=== PATIENT | female | born 1965 | race Caucasian/White ===

== ENCOUNTER 2016-08-24 18:50 | Emergency (ER) | payer BC ==
[2016-08-24] MEDS ORDERED: TETRACAINE HCL 0.5% OPH SOLN 2 ML OU ONE (22:10)
--- NOTE | 2016-08-24 22:49 | ER Document Report ---
ED General - General Chief Complaint: Eye Problem Stated Complaint: EYE PAIN Notes: Patient is a pleasant 42-year-old female presents with complaint of bilateral eye pain and irritation. Patient says she initially had some pain in her right eye after she was using a chainsaw to cut down a tree limb. Patient says she saw who placed her on Cipro eyedrops. She says she's been applying Cipro eyedrops to both eyes. Since starting the eyedrops she developed worsening irritation or redness now to both eyes. No fevers. No other complaints this time. No blurred vision. Some pain to the eyes. She does have history of Lasix surgery to the right eye several years ago. TRAVEL OUTSIDE OF THE [place] IN LAST 30 DAYS: No - Related Data Allergies/Adverse Reactions: No Known Allergies Allergy (Unverified 08/24/16 19:45) Past Medical History - Social History Smoking Status: Never Smoker Frequency of alcohol use: None Drug Abuse: None Family History: Reviewed & Not Pertinent Patient has suicidal ideation: No Patient has homicidal ideation: No Renal/ Medical History: Denies: Hx Peritoneal Dialysis Review of Systems - Review of Systems Notes: My Normal Review Basic REVIEW OF SYSTEMS: CONSTITUTIONAL : Denies fever, chills, or sweats. Denies recent illness. EENT: Eye irritation and pain. MUSCULOSKELETAL: Denies neck or back pain or joint pain or swelling. SKIN: Denies rash or skin lesions. NEUROLOGICAL: Denies altered mental status or loss of consciousness. Denies headache. ALL OTHER SYSTEMS REVIEWED AND NEGATIVE. Physical Exam - Vital signs Vitals: Temp Pulse Resp BP Pulse Ox 98.2 F 85 18 159/86 H 100 08/24/16 19:41 08/24/16 19:41 08/24/16 19:41 08/24/16 19:41 08/24/16 19:41 - Notes Notes: General Appearance: Well nourished, alert, cooperative, no acute distress, no obvious discomfort. Well-appearing. Vitals: reviewed, See vital signs table. Head: no swelling or tenderness to the head Eyes: PERRL, EOMI, conjunctiva of both eyes is erythematous and irritated. The eyelids are not swollen. Corneas are clear and not cloudy. Fluoroscein staining of both eyes showed no evidence of corneal abrasion. No pain with extraocular motion. Tonopen pressure of right eye is 16 and left eye is 18. Mouth: No decreasd moisture Throat: No tonsillar inflammation, No airway obstruction, No lymphadenopathy Extremities: strength 5/5 in all extremities, good pulses in all extremities, no swelling or tenderness in the extremities, no edema. Skin: warm, dry, appropriate color, no rash Neuro: speech clear, oriented x 3, normal affect, responds appropriately to questions. - HEENT Visual acuity- Right eye: 20/30 Visual acuity- Left eye: 20/20 Visual acuity- Both eyes: 20/15 Corrective lenses worn: No Course - Vital Signs Vital signs: Temp Pulse Resp BP Pulse Ox 98.2 F 85 18 159/86 H 100 08/24/16 19:41 08/24/16 19:41 08/24/16 19:41 08/24/16 19:41 08/24/16 19:41 - Transfer of Care Notes: 08/24/16 22:56 She has irritation and redness to both her eyes that became worse after using Cipro eyedrops. I do not see evidence of corneal abrasion. Will have her stop the Cipro eyedrops. I informed her that the irritation could be from the eyedrops or could be from something such as a viral infection of the eyes. I encourage her to follow up with her loss control engineer on Saturday. If she is unable to get her loss control engineer also gave her the number to Dr. Tong. I encourage her to return to ER shows worsening redness or any swelling or inflammation to the eyes. Patient agrees with plan and will be discharged home. Dictation of this chart was performed using voice recognition software; therefore, there may be some unintended grammatical errors. Discharge - Discharge Clinical Impression: Eye irritation Condition: Good Disposition: HOME, SELF-CARE Additional Instructions: Please stop taking the Cipro eye drops. Please follow up with your ophthamologist on Saturday or for close reevaluation. If you are unable to get into your ophthamologist please follow up with Dr. Tong. Please call the office for an appointment. Please return to the ER immediately if you have worsening redness or pain to your eyes. Referrals: KRISSY TONG MD [ACTIVE STAFF] - 08/27/16
[2016-08-24 23:06] VITALS: BP 127/90
== END 2016-08-24 23:04 | disposition home or self-care (01) ==
LOC: ER 18:50
DX: H57.8 Other specified disorders of eye and adnexa (principal); H57.13 Ocular pain, bilateral; Z98.890 Other specified postprocedural states
CPT/HCPCS: 99283

== ENCOUNTER 2018-09-19 05:30 | Day surgery (SDC) | payer BC ==
[2018-09-19] MEDS ORDERED: CEFAZOLIN 1 GM/D5W RTU 1 GM/50 ML RTUPB IV ONE (05:42)
[2018-09-19] MEDS ORDERED: CEFAZOLIN 1 GM/D5W RTU 1 GM/50 ML RTUPB IV PRN (05:42)
[2018-09-19 06:08] LABS: HEMATOCRIT 38.3 % (36.0-47.0); HEMOGLOBIN 12.7 g/dL (12.0-15.5); MEAN CORPUSCULAR HEMOGLOBIN 27.7 pg (27.0-33.4); MEAN CORPUSCULAR HGB CONC 33.2 g/dL (32.0-36.0); MEAN CORPUSCULAR VOLUME 84 fl (80-97); PLATELET COUNT 362 10^3/uL (150-450); RED BLOOD COUNT 4.59 10^6/uL (3.72-5.28); WHITE BLOOD COUNT 5.7 10^3/uL (4.0-10.5)
[2018-09-19 06:27] LABS: APPEARANCE,URINE CLOUDY; BILIRUBIN,URINE NEGATIVE (NEGATIVE); COLOR,URINE RED; GLUCOSE, URINE NEGATIVE (NEGATIVE); KETONES,URINE NEGATIVE (NEGATIVE); LEUKOCYTE ESTERASE,URINE NEGATIVE (NEGATIVE); NITRITE,URINE NEGATIVE (NEGATIVE); PROTEIN,URINE 100 mg/dL (NEGATIVE); URINE SPECIFIC GRAVITY 1.016; UROBILINOGEN,URINE NEGATIVE mg/dL (<2.0)
[2018-09-19 06:30] LABS: ALANINE AMINOTRANSFERASE 18 U/L (9-52); ALBUMIN 4.2 g/dL (3.5-5.0); ALKALINE PHOSPHATASE 55 U/L (38-126); ANION GAP 13 (5-19); ASPARTATE AMINO TRANSFERASE 20 U/L (14-36); BILIRUBIN,DIRECT 0.2 mg/dL (0.0-0.4); BILIRUBIN,TOTAL 0.4 mg/dL (0.2-1.3); BLOOD UREA NITROGEN 11 mg/dL (7-20); CALCIUM 9.7 mg/dL (8.4-10.2); CARBON DIOXIDE 19 mmol/L (22-30); CHLORIDE 109 mmol/L (98-107); GLUCOSE 99 mg/dL (75-110); POTASSIUM 4.7 mmol/L (3.6-5.0); SODIUM 141.3 mmol/L (137-145); TOTAL PROTEIN 7.1 g/dL (6.3-8.2)
[2018-09-19] MEDS ORDERED: FENTANYL CITRATE INJ/PF 100 MCG/2 ML AMPUL ONE (06:36)
[2018-09-19] MEDS ORDERED: MIDAZOLAM 2 MG/2 ML INJ ONE (06:36)
[2018-09-19] MEDS ORDERED: ONDANSETRON HCL INJ/PF 4 MG/2 ML SDV ONE (06:36)
[2018-09-19] MEDS ORDERED: PROPOFOL INJ 200 MG/20 ML VIAL IV ONE (06:36)
[2018-09-19] MEDS ORDERED: KETOROLAC TROMETHAMINE 60 MG/2 ML SDV ONE (06:37)
[2018-09-19] MEDS ORDERED: LIDOCAINE 1% INJ-PF (10 MG/ML) 30 ML SDV ONE (07:13)
[2018-09-19] MEDS ORDERED: METOCLOPRAMIDE HCL INJ/PF 10 MG/2 ML SDV ONE (07:20)
[2018-09-19] MEDS ORDERED: FAMOTIDINE INJ/PF 20 MG/2 ML SDV IV ONE (07:20)
[2018-09-19] MEDS ORDERED: MEPERIDINE HCL/PF INJ 25 MG/1 ML DISP.SYRIN IV PRN (07:46)
[2018-09-19] MEDS ORDERED: DIPHENHYDRAMINE HCL 50 MG/ML VIAL IV PRN (07:46)
[2018-09-19] MEDS ORDERED: PROMETHAZINE HCL INJ 25 MG/1 ML VIAL IV PRN ×2 (07:46→08:19)
[2018-09-19] MEDS ORDERED: FENTANYL CITRATE INJ/PF 100 MCG/2 ML AMPUL IV PRN ×3 (07:46)
[2018-09-19] MEDS ORDERED: OXYCODONE-ACETAMINOPHEN 5-325 MG TABLET PO PRN (08:18)
[2018-09-19 09:06] VITALS: BP 120/84
--- NOTE | 2018-09-19 16:19 | OPERATIVE REPORT E ---
Operative Report NAME: CHARAN BONNER : 1965 AGE: 52Y DATE OF SURGERY: 09/19/2018 ROOM: PREOPERATIVE DIAGNOSIS: MENOMETRORRHAGIA, DYSFUNCTIONAL UTERINE BLEEDING. POSTOPERATIVE DIAGNOSIS: MENOMETRORRHAGIA, DYSFUNCTIONAL UTERINE BLEEDING. OPERATION: D AND C, AND HYSTEROSCOPY. SURGEON: GURWINDER YBARRA M.D. ANESTHESIA: General. PERTINENT HISTORY/OPERATIVE FINDINGS: This is a 52-year-old female who had been having trouble with heavy and irregular bleeding. She ultimately decided to proceed with a D and C, hysteroscopy, and possible NovaSure. At the time of surgery, the vulva and vagina appeared to be normal. The cervix appeared to be normal, multiparous. The uterus was anterior and normal in size and shape. Adnexa negative. PROCEDURE: The patient was brought into the OR, placed on the table in a supine position, inducted under general anesthesia. Following this, she was repositioned in a dorsal lithotomy position, prepped and draped in sterile fashion. The bladder was drained of about 50 mL of clear yellow urine. Pelvic under anesthesia was performed. A bivalve speculum was inserted. The cervix was grasped on its anterior lip with a single-tooth tenaculum and an Allis. The uterus was sounded to 10 cm. The cervix was dilated to a #32 Richardson dilator. The cervical length was found to be 5 cm, giving a cavity length of 5 cm. We did go ahead and do a hysteroscopy. There was plenty of tissue and polypoid looking tissue. I was somewhat concerned about the amount of tissue that was present. We did go ahead and do a D and C and use polyp forceps. A large amount of tissue was returned, which was somewhat concerning. At this point in time, after considering pros and cons, it was elected not to proceed with the NovaSure because we might end up cauterizing and blocking a cancerous polyp or tumor, ergo this terminated the procedure. The tenaculum and the Allis were removed. We did get all of the saline out of the uterus prior to stopping the procedure. The bivalve speculum was removed. The anesthesia was discontinued. The patient was placed back in the supine position and transferred to the recovery room in satisfactory condition. The tissue was sent to the lab for further evaluation. Estimated blood loss at the time of surgery was 15-20 mL. DICTATING PHYSICIAN: GURWINDER YBARRA M.D. [id number] PHY#: [id number] ID: [id number] JOB#: [id number] ACCT: [id number] cc:GURWINDER YBARRA M.D. >
== END 2018-09-19 09:20 | disposition home or self-care (01) ==
LOC: OROUT 05:30
PROVIDERS: ATTEND Obstetrics & Gynecology
DX: N92.1 Excessive and frequent menstruation with irregular cycle (principal); N93.8 Other specified abnormal uterine and vaginal bleeding; N84.0 Polyp of corpus uteri; E66.9 Obesity, unspecified; Z68.36 Body mass index [BMI] 36.0-36.9, adult
CPT/HCPCS: 36415; 85027; 81025; 80053; 81001; 88305 ×2; 58558; J2250; J0690; J1885; J3010; J2765; J2405; J2704; S0028; 952; J3490

== ENCOUNTER 2019-03-12 05:36 | Day surgery (SDC) | payer BC ==
[2019-03-04 10:26] LABS: HEMATOCRIT 42.9 % (36.0-47.0); HEMOGLOBIN 15.1 g/dL (12.0-15.5); MEAN CORPUSCULAR HEMOGLOBIN 30.2 pg (27.0-33.4); MEAN CORPUSCULAR HGB CONC 35.1 g/dL (32.0-36.0); MEAN CORPUSCULAR VOLUME 86 fl (80-97); PLATELET COUNT 283 10^3/uL (150-450); RED BLOOD COUNT 4.99 10^6/uL (3.72-5.28); RED CELL DISTRIBUTION WIDTH 13.3 % (11.5-14.0); WHITE BLOOD COUNT 5.1 10^3/uL (4.0-10.5)
[2019-03-04 10:48] LABS: ALBUMIN 4.5 g/dL (3.5-5.0); ALKALINE PHOSPHATASE 61 U/L (38-126); ANION GAP 13 (5-19); ASPARTATE AMINO TRANSFERASE 22 U/L (14-36); BILIRUBIN,DIRECT 0.1 mg/dL (0.0-0.4); BILIRUBIN,TOTAL 0.5 mg/dL (0.2-1.3); BLOOD UREA NITROGEN 9 mg/dL (7-20); CALCIUM 10.1 mg/dL (8.4-10.2); CARBON DIOXIDE 23 mmol/L (22-30); CHLORIDE 106 mmol/L (98-107); GLUCOSE 84 mg/dL (75-110); POTASSIUM 4.6 mmol/L (3.6-5.0); TOTAL PROTEIN 7.3 g/dL (6.3-8.2)
[2019-03-04 10:54] LABS: APPEARANCE,URINE CLEAR; BILIRUBIN,URINE NEGATIVE (NEGATIVE); COLOR,URINE YELLOW; GLUCOSE, URINE NEGATIVE (NEGATIVE); KETONES,URINE NEGATIVE (NEGATIVE); LEUKOCYTE ESTERASE,URINE NEGATIVE (NEGATIVE); NITRITE,URINE NEGATIVE (NEGATIVE); PROTEIN,URINE NEGATIVE (NEGATIVE); URINE SPECIFIC GRAVITY 1.004; UROBILINOGEN,URINE NEGATIVE mg/dL (<2.0)
[~2019-03-12 05:36] MED LIST: CEFAZOLIN SODIUM 1 GM in DEXTROSE 5%-WATER 50 ML IV PRN; LACTATED RINGERS 1000 ML IV PRN; LIDOCAINE 0.5% INJ-PF (5 MG/ML) 50 ML SDV SUBCUT PRN
[2019-03-12 06:20] VITALS: BP 152/90
[2019-03-12] MEDS ORDERED: FENTANYL CITRATE INJ/PF 250 MCG/5 ML AMPULE ONE (07:12)
[2019-03-12] MEDS ORDERED: MIDAZOLAM 2 MG/2 ML INJ ONE (07:12)
[2019-03-12] MEDS ORDERED: PROPOFOL INJ 200 MG/20 ML VIAL IV ONE (07:13)
[2019-03-12] MEDS ORDERED: BUPIVACAINE HCL 0.25 % INJ/PF (2.5 MG/1 ML) 30 ML VIAL ONE (07:18)
== END 2019-03-12 07:33 | disposition home or self-care (01) ==
LOC: OROUT 05:36
PROVIDERS: ATTEND Obstetrics & Gynecology
DX: N83.201 Unspecified ovarian cyst, right side (principal); Z53.8 Procedure and treatment not carried out for other reasons; R03.0 Elevated blood-pressure reading, without diagnosis of hypertension
CPT/HCPCS: 36415; 85027; 81025; 80053; 81001; J0690; J7060; J2250; J2704; J3010

== ENCOUNTER 2019-04-02 05:32 | Day surgery (SDC) | payer BC ==
[2019-03-31 09:22] LABS: HEMATOCRIT 41.4 % (36.0-47.0); HEMOGLOBIN 14.4 g/dL (12.0-15.5); MEAN CORPUSCULAR HEMOGLOBIN 30.7 pg (27.0-33.4); MEAN CORPUSCULAR HGB CONC 34.7 g/dL (32.0-36.0); MEAN CORPUSCULAR VOLUME 88 fl (80-97); PLATELET COUNT 347 10^3/uL (150-450); RED BLOOD COUNT 4.68 10^6/uL (3.72-5.28); RED CELL DISTRIBUTION WIDTH 13.8 % (11.5-14.0); WHITE BLOOD COUNT 6.3 10^3/uL (4.0-10.5)
[2019-03-31 09:29] LABS: APPEARANCE,URINE SLIGHTLY-CLOUDY; BILIRUBIN,URINE NEGATIVE (NEGATIVE); COLOR,URINE STRAW; GLUCOSE, URINE NEGATIVE (NEGATIVE); KETONES,URINE NEGATIVE (NEGATIVE); LEUKOCYTE ESTERASE,URINE TRACE (NEGATIVE); NITRITE,URINE NEGATIVE (NEGATIVE); PROTEIN,URINE NEGATIVE (NEGATIVE); URINE SPECIFIC GRAVITY 1.004; UROBILINOGEN,URINE NEGATIVE mg/dL (<2.0)
[2019-03-31 09:50] LABS: ALBUMIN 4.2 g/dL (3.5-5.0); ALKALINE PHOSPHATASE 59 U/L (38-126); ANION GAP 9 (5-19); ASPARTATE AMINO TRANSFERASE 24 U/L (14-36); BILIRUBIN,DIRECT 0.1 mg/dL (0.0-0.4); BILIRUBIN,TOTAL 0.5 mg/dL (0.2-1.3); BLOOD UREA NITROGEN 9 mg/dL (7-20); CALCIUM 9.6 mg/dL (8.4-10.2); CARBON DIOXIDE 26 mmol/L (22-30); CHLORIDE 106 mmol/L (98-107); GLUCOSE 84 mg/dL (75-110); POTASSIUM 4.3 mmol/L (3.6-5.0)
[~2019-04-02 05:32] MED LIST changes: +CEFAZOLIN 1 GM/D5W RTU 1 GM/50 ML RTUPB IV PRN; +CEFAZOLIN INJ 1 GM VIAL ONE; -CEFAZOLIN SODIUM 1 GM in DEXTROSE 5%-WATER 50 ML IV PRN
[2019-04-02] MEDS ORDERED: PROPOFOL INJ 200 MG/20 ML VIAL IV ONE (06:45)
[2019-04-02] MEDS ORDERED: HYDROMORPHONE HCL INJ/PF 2 MG/ML AMPULE ONE (06:45)
[2019-04-02] MEDS ORDERED: MIDAZOLAM 2 MG/2 ML INJ ONE (06:45)
[2019-04-02] MEDS ORDERED: LIDOCAINE 2% INJ-PF (20 MG/ML) 10 ML AMPUL ONE (06:45)
[2019-04-02] MEDS ORDERED: BUPIVACAINE HCL 0.25 % INJ/PF (2.5 MG/1 ML) 30 ML VIAL ONE (07:13)
[2019-04-02] MEDS ORDERED: OXYCODONE-ACETAMINOPHEN 5-325 MG TABLET PO PRN ×4 (08:32→08:55)
[2019-04-02] MEDS ORDERED: ONDANSETRON HCL INJ/PF 4 MG/2 ML SDV IV PRN (08:32)
[2019-04-02] MEDS ORDERED: PROMETHAZINE HCL INJ 25 MG/1 ML VIAL IV PRN ×3 (08:32→08:56)
[2019-04-02] MEDS ORDERED: MEPERIDINE HCL/PF INJ 25 MG/1 ML DISP.SYRIN IV PRN (08:32)
[2019-04-02] MEDS ORDERED: DIPHENHYDRAMINE HCL 50 MG/ML VIAL IV PRN (08:32)
[2019-04-02] MEDS ORDERED: FENTANYL CITRATE INJ/PF 100 MCG/2 ML AMPUL IV PRN ×3 (08:32)
[2019-04-02 10:51] VITALS: BP 116/75
--- NOTE | 2019-04-02 17:22 | Operative Report ---
Operative Report DATE OF SURGERY: 04/02/19 PREOPERATIVE DIAGNOSIS: DUB / Pelvic pain / Simple right ovarian cyst POSTOPERATIVE DIAGNOSIS: same OPERATION: D & C / Laparoscopy / Aspiration of right ovarian cyst 1ST TIRE FINISHER: Arelis Guevara ANESTHESIA: GA TISSUE REMOVED OR ALTERED: Right ovarian simple cyst fluid / Endometrium COMPLICATIONS: None ESTIMATED BLOOD LOSS: 25 cc INTRAOPERATIVE FINDINGS: Enlarged uterus with Adenomyosis / simple right ovarian csyt / tubes and left ovary WNL / Liver normal / Small and large bowel normal PROCEDURE: Patient was brought into the operating room and placed on the table in supine position. She was then inducted under general anesthesia. The patient was repo sitioned in a dorsolithotomy position prepped and draped in a sterile fashion. After the timeout the patient had the urinary bladder drained of approximately 100 cc of clear yellow urine. A pelvic under anesthesia was then performed. A bivalve vaginal speculum was then inserted and opened up. The cervix was grasped on its anterior lip with a single-tooth tenaculum. The uterus was sounded to 10 cm. Cervix was dilated with Hegar dilators. Using a small sharp curette the endometrial cavity was curetted with minimal tissue returned. Attention was then turned to the abdominal wall. Abdominal wall was picked up and a varies needle was introduced through the umbilicus. The varies needle was then connected to the insufflation. Opening pressures were 5 cm of water. We insufflated to 3 L obtaining a intra-abdominal pressure of 15 cm of water. The varies needle was then removed. A small incision was made infraumbilically. Incision was trocar and sleeve were inserted. The trocar was removed and through the sleeve a laparoscope was inserted. A second incision was made suprapubically. A trocar and sleeve were inserted through this incision. The trocar was removed and a probe was inserted through this port. Contents of the patient's pelvis and abdomen were then video recorded. The right ovary was then grasped with grasping forceps. A third abdominal incision was made in the right lower quadrant. This incision a trocar and sleeve were inserted. The trocar was then removed through the sleeve a needle aspirator was inserted. The right ovarian cyst was then needled. We returned approximately 50 cc of clear white fluid. Fluid was then sent to pathology. We then irrigated the pelvis and abdomen with normal saline. There was no evidence of active bleeding. The suprapubic sleeve in the right lower quadrant sleeve were then removed. The CO2 was allowed to escape through the subumbilical sleeve. Subumbilical sleeve was then removed. The incisions were then injected with quarter percent Marcaine. Visions were closed with interrupted 0 Vicryl. The skin edges were brought together with interrupted 4-0 Prolene. Attention was turned towards the pelvis once again. The tenaculum probe was removed. There was no evidence of active bleeding. Is terminated the procedure. Anesthesia was DC'd. She was then placed back in a supine position. The patient was transferred to recovery room in satisfactory condition.
[2019-04-02] MEDS ORDERED: ONDANSETRON HCL INJ/PF 4 MG/2 ML SDV ONE (18:11)
[2019-04-02] MEDS ORDERED: NEOSTIGMINE METHYLSULFATE 10 MG/10 ML VIAL ONE (18:11)
[2019-04-02] MEDS ORDERED: METOCLOPRAMIDE HCL INJ/PF 10 MG/2 ML SDV ONE (18:11)
[2019-04-02] MEDS ORDERED: ROCURONIUM BROMIDE INJ 50 MG/5 ML VIAL IV ONE (18:11)
[2019-04-02] MEDS ORDERED: LIDOCAINE 2% INJ-PF (20 MG/ML) 2 ML AMPUL ONE (18:11)
[2019-04-02] MEDS ORDERED: DEXAMETHASONE SOD PHOSPHATE INJ 4 MG/1 ML VIAL ONE (18:11)
[2019-04-02] MEDS ORDERED: GLYCOPYRROLATE 1 MG/5 ML VIAL ONE (18:11)
[2019-04-02] MEDS ORDERED: KETOROLAC TROMETHAMINE 60 MG/2 ML SDV ONE (18:11)
== END 2019-04-02 10:25 | disposition home or self-care (01) ==
LOC: OROUT 05:32
PROVIDERS: ATTEND Obstetrics & Gynecology
DX: N83.201 Unspecified ovarian cyst, right side (principal); N93.8 Other specified abnormal uterine and vaginal bleeding; R10.2 Pelvic and perineal pain
CPT/HCPCS: 36415; 85027; 81025; 80053; 81001; 88162; 88305 ×2; 49322; 58120; J2250; J0690; J3490 ×3; J1100; J1885; J2765; J2710; J1170; J2405; J2704; 840